=== PATIENT | male | born 1975 | race Hispanic/Latino ===

== ENCOUNTER 2018-08-13 11:22 | Emergency (ER) | payer BC | END 2018-08-13 12:32 | disposition home or self-care (01) | LOC: EDH 11:22 | DX: S62.101A Fracture of unspecified carpal bone, right wrist, initial encounter for closed fracture (principal); J45.909 Unspecified asthma, uncomplicated; E11.9 Type 2 diabetes mellitus without complications; Z72.0 Tobacco use; Y04.0XXA Assault by unarmed brawl or fight, initial encounter; Y93.89 Activity, other specified; Y92.89 Other specified places as the place of occurrence of the external cause; Y99.8 Other external cause status | CPT/HCPCS: 29125; 73130 ==

== ENCOUNTER 2021-08-06 11:07 | Emergency (ER) | payer BC, OTHER ==
[~2021-08-06] VITALS: Ht 172.7 cm; Wt 81.6 kg
[2021-08-06 12:39] LABS: BASOPHILS % (AUTO) 0.3 % (0.0-5.0); EOSINOPHILS % (AUTO) 1.3 % (0.0-8.0); HEMATOCRIT 40.6 % (42-54); LYMPHOCYTES % (AUTO) 8.2 % (21.0-51.0); MEAN CORPUSCULAR HGB CONC 35.7 g/dL (32.0-36.0); MEAN CORPUSCULAR VOLUME 83.9 fL (79-99); MONOCYTES % (AUTO) 5.7 % (3.0-13.0); NEUTROPHILS % (AUTO) 84.1 % (40.0-77.0); PLATELET COUNT (AUTO) 258 K/uL (130-400); RED BLOOD CELL COUNT(AUTO) 4.84 MIL/uL (4.50-6.20); RED CELL DISTRIBUTION WIDTH 12.6 % (11.0-15.5); WHITE BLOOD COUNT (AUTO) 15.9 K/uL (4.8-10.8)
[2021-08-06 12:40] LABS: ABG BASE EXCESS 0.6 mmol/L (-2.0-3.0); ABG HCO3 24.3 mmol/L (21.0-28.0); ABG OXYGEN SATURATION 96.3 % (95.0-99.0); ABG PCO2 36 mmHg (35-48)
[2021-08-06 12:48] LABS: CREATININE 1.1 mg/dL (0.5-1.5); POTASSIUM 4.4 mmol/L (3.5-5.1)
[2021-08-06 12:52] LABS: ALBUMIN 3.6 g/dL (3.5-5.0); BILIRUBIN,TOTAL 0.5 mg/dL (0.2-1.0); CRP QUANTITATIVE 31.8 mg/L (0.00-9.0); TOTAL PROTEIN, SERUM 7.5 g/dL (6.0-8.3)
[2021-08-06] MEDS ORDERED: DEXAMETHASONE SOD PHOSPHATE 4 MG/ML 1ML VIAL IM STA (13:15)
[2021-08-06] MEDS ORDERED: CEFTRIAXONE 1G VIAL IVP STA (13:15)
[2021-08-06] MEDS ORDERED: LIDOCAINE HCL-MPF 1% 2ML VIAL ONE (13:27)
[2021-08-06] MEDS ORDERED: AZIT500T2 PO (14:06)
[2021-08-06] MEDS ORDERED: AUD IH (14:06)
[2021-08-06] MEDS ORDERED: METH4TAB3 PO (14:06)
[2021-08-06 14:21] VITALS: BP 130/82
== END 2021-08-06 14:20 | disposition home or self-care (01) ==
LOC: EDH 11:07
DX: J06.9 Acute upper respiratory infection, unspecified (principal); Z20.822 Contact with and (suspected) exposure to COVID-19; J45.909 Unspecified asthma, uncomplicated; E11.9 Type 2 diabetes mellitus without complications; Z79.52 Long term (current) use of systemic steroids; Z79.899 Other long term (current) drug therapy
CPT/HCPCS: 36415; 36600; 71045; 80053; 82803; 85025; 86140; 87635; 87804 ×2; 93005; 96372; 96374; 99285; C9803; J0696; J1100; J3490

== ENCOUNTER 2024-12-30 22:58 | Emergency (ER) | payer SELFPAY ==
[~2024-12-30] VITALS: Ht 172.7 cm; Wt 72.6 kg
[~2024-12-30 22:58] MED LIST: AUD IH; AZIT500T2 PO; METH4TAB3 PO
[2024-12-30 23:00] VITALS: TEMP 98.5
--- NOTE | 2024-12-30 23:04 | NUR ---
UA CUP PROVIDED
--- NOTE | 2024-12-30 23:07 | ERN ---
ED Note History of Present Illness Stated Complaint: HIGH BLOOD SUGAR, BODYACHES, STIFF NNECK Chief Complaint: Multiple Complaints Time Seen by MD: 23:00 Dictation: 49-YEAR-OLD MALE HERE WITH COMPLAINTS OF HAVING BODY ACHES CHILLS HIGH BLOOD SUGARS WITH NAUSEA ONSET FOR THE LAST SEVERAL DAYS. STATES HE IS NOT COMPLIANT WITH HIS MEDICATIONS NOT SEEN HIS PRIMARY CARE DOCTOR. Allergies: Coded Allergies: No Known Drug Allergies (Unverified Allergy, Unknown, 08/06/21) Home Meds Active Scripts Albuterol Sulfate (Albuterol Sulfate) 2.5 Mg/0.5 Ml Vial.neb, 2.5 MG IH Q6HPRN, #1 BOX Prov:ROXI BATES NP 08/06/21 Azithromycin (Zithromax Tri-Roni) 500 Mg Tablet, 500 MG PO AD, #1 PACK Prov:ROXI BATES NP 08/06/21 Methylprednisolone (Medrol) 4 Mg Tab.ds.pk, 4 MG PO AD, #1 PACK Prov:ROXI BATES NP 08/06/21 Past Medical History Past Medical History: Diabetes-Type II Surgical History: Other Surgical History Other: HERNIA REPAIR Family History: Negative Social History: Negative, Lives with family RN Note Reviewed/Agreed w/PFSH: Yes Review of System Dictation CONSTITUTIONAL: NEGATIVE EXCEPT FOR HPI CHILLS HEAD/FACE: NEGATIVE EXCEPT FOR HPI EENT: NEGATIVE EXCEPT FOR HPI RESPIRATORY: NEGATIVE EXCEPT FOR HPI GASTROINTESTINAL/ABDOMINAL: NEGATIVE EXCEPT FOR HPI HIGH BLOOD SUGARS WITH NAUSEA VOMITING GENITOURINARY: NEGATIVE EXCEPT FOR HPI MUSCULOSKELETAL: NEGATIVE EXCEPT FOR HPI INTEGUMENTARY: NEGATIVE EXCEPT FOR HPI NEUROLOGICAL/PSYCH: NEGATIVE EXCEPT FOR HPI HEMATOLOGIC/LYMPHATIC: NEGATIVE EXCEPT FOR HPI ALL SYSTEMS NEGATIVE, EXCEPT NOTED ABOVE. 13 POINT REVIEW OF SYSTEMS ASSESSED AND ALL NEGATIVE EXCEPT FOR ABOVE. Initial Vital Sign VS Vital Signs Date Time Temp Pulse Resp B/P (MAP) Pulse Ox O2 Delivery O2 Flow Rate FiO2 12/30/24 23:00 98.4 129 20 111/71 99 Room Air 12/31/24 00:09 0 21 Physical Exam Dictation VITAL SIGNS REVIEWED GENERAL APPEARANCE: ALERT, ORIENTED X 3, ACUTE DISTRESS, WELL DEVELOPED, NOURISHED. HEAD AND FACE: NON-TRAUMATIC. EYES: PERRL, PINK CONJUNCTIVAS, EYELID NO TRAUMA, ANTERIOR CHAMBER WITH ARCUS SENILIS. EARS: PINNAS INTACT AND NO SIGNS OF TRAUMA OR ERYTHEMA EAR CANALS CLEAR AND NO DISCHARGE TM NO ERYTHEMA NOSE: NO DISCHARGE, NO BLEEDING. OROPHARYNX: MOUTH NORMAL, TONGUE PINK, PHARYNX CLEAR,NO ERYTHEMA, TONSILS NO EXUDATES, NO ABSCESSES NOTED, MUCOUS MEMBRANE MOIST NECK: SUPPLE, NON-TENDER, NO THYROMEGALY, NO MASSES, NO JVD, NO BRUITS BREAST:DEFERRED CHEST:NO TENDERNESS, NO CREPITUS, NO PARADOXICAL MOVEMENT, NO RETRACTIONS LUNGS:CLEAR, WELL-VENTILATED, SYMMETRIC, NO RALES, NO WHEEZING, NO RHONCHI, NO STRIDOR, GOOD BREATH SOUNDS BILATERALLY HEART: TACHYCARDIC, NO MURMUR, NO GALLOPS VASCULAR: NO PERIPHERAL EDEMA, ABDOMEN: SOFT, POSITIVE BOWEL SOUNDS, NONDISTENDED, NO GUARDING, NONTENDER, NO REBOUND, NO MASSES NO HEPATOMEGALY, NO SPLENOMEGALY, NO WATKINS'S SIGN, NO HERNIAS. RECTAL: DEFERRED GENITAL: DEFERRED NEUROLOGICAL: NORMAL SPEECH, MOTOR FUNCTION INTACT, SENSORY FUNCTION INTACT MUSCULOSKELETAL: NECK NONTENDER, FULL RANGE OF MOTION, BACK NONTENDER, FULL RANGE OF MOTION, EXTREMITIES: NONTENDER, FULL RANGE OF MOTION SKIN: COLOR PINK, DRY, NO TURGOR, NO RASH, NO LACERATIONS, NO ABRASIONS, NO CONTUSIONS. LYMPHATIC: DEFERRED Results (Laboratory/Radiology) Laboratory/Radiology Laboratory Tests Test 12/30/24 23:01 12/30/24 23:15 12/30/24 23:55 Whole Blood Glucose 426 MG/DL (70-110) *H White Blood Count 6.8 K/uL (4.8-10.8) Red Blood Count 4.50 MIL/uL (4.50-6.20) Hemoglobin 13.4 g/dL (14.0-18.0) L Hematocrit 37.0 % (42-54) L Mean Corpuscular Volume 82.2 fL (79-99) Mean Corpuscular Hemoglobin 29.8 pg (27.0-33.0) Mean Corpuscular Hemoglobin Concent 36.2 g/dL (32.0-36.0) H Red Cell Distribution Width 12.9 % (11.0-15.5) Platelet Count 109 K/uL (130-400) L Mean Platelet Volume 11.5 fL (7.5-10.5) H Immature Granulocyte % (Auto) 0.7 % (0-1) Neutrophils (%) (Auto) 92.1 % (40.0-77.0) H Lymphocytes (%) (Auto) 3.4 % (21.0-51.0) L Monocytes (%) (Auto) 3.4 % (3.0-13.0) Eosinophils (%) (Auto) 0.1 % (0.0-8.0) Basophils (%) (Auto) 0.3 % (0.0-5.0) Neutrophils # (Auto) 6.2 K/uL (1.8-7.7) Lymphocytes # (Auto) 0.2 K/uL (1.0-4.8) L Monocytes # (Auto) 0.2 K/uL (0.1-1.0) Eosinophils # (Auto) 0.01 K/uL (0.00-0.70) Basophils # (Auto) 0.02 K/uL (0.00-0.20) Absolute Immature Granulocyte (auto 0.05 K/uL (0-1) Segmented Neutrophils % 62 % (40-70) Band Neutrophils % 18 % (0-2) H Lymphocytes % (Manual) 15 % (22-44) L Monocytes % (Manual) 1 % (2-9) L Eosinophils % (Manual) 1 % (1-6) Metamyelocytes % 1 % (0-0) H Nucleated Red Blood Cells 0.0 % (0.0-0.19) Differential Comment MANUAL DIFFERENTIAL Reactive Lymphocytes 2 % (0-0) H White Cell Morphology Comment See comments Platelet Morphology Comment SLIGHTLY DECREASED Red Blood Cell Morphology ANISO 1+ Sodium Level 128 mmol/L (136-145) L Potassium Level 2.9 mmol/L (3.5-5.1) *L Chloride Level 91 mmol/L (101-111) L Carbon Dioxide Level 25 mmol/L (21-32) Blood Urea Nitrogen 18 mg/dL (7-18) Creatinine 1.5 mg/dL (0.5-1.3) H Glomerular Filtration Rate Calc 56 mL/min (>90) Random Glucose 411 mg/dL (70-105) *H Whole Blood Ketones Quantitative < 0.1 mmol/L (0.0-0.6) Total Calcium 8.7 mg/dL (8.5-10.1) Lipase 16 U/L (16-77) Urine Color YELLOW (YELLOW) Urine Appearance CLEAR (CLEAR) Urine pH 6.0 (5.0-8.0) Urine Specific Odin 1.025 (1.001-1.031) Urine Protein 100 mg/dL (NEGATIVE) H Urine Glucose (UA) >=1000 mg/dL (NEGATIVE) H Urine Ketones NEGATIVE mg/dL (NEGATIVE) Urine Occult Blood SMALL (NEGATIVE) H Urine Nitrate NEGATIVE (NEGATIVE) Urine Bilirubin NEGATIVE mg/dL (NEGATIVE) Urine Urobilinogen 2.0 mg/dL (0.2-1.0) H Urine Leukocyte Esterase NEGATIVE Serafin/uL Urine RBC 2-5 /HPF (0-1) H Urine WBC 2-5 /HPF (0-1) H Urine Bacteria RARE /HPF (None Seen) Labs Reviewed?: Yes ED Course ED Course Orders Procedure Category Date Status Time Bedside Glucose CPOE 12/30/24 Transmitted Fingerstick 23:01 Ketone Blood LAB 12/30/24 Complete Quantitative 23:04 Cbc With Differential LAB 12/30/24 Complete 23:04 Urinalysis Profile LAB 12/30/24 Complete 23:04 0.9%Nacl 1000ml (Ns PHA 12/30/24 Complete 1000ml) 23:30 Ondansetron 4mg Inj PHA 12/30/24 Complete (Zofran 4mg Inj) 23:30 Famotidine 20mg Vial PHA 12/30/24 Complete (Pepcid 20mg Vial) 23:30 Lipase LAB 12/30/24 Complete 23:04 Basic Metabolic Panel LAB 12/30/24 Complete 23:04 Insulin Regular, PHA 12/31/24 Complete Human 3ml (Humulin R 00:00 Manual Differential LAB 12/30/24 Complete 23:15 0.9%Nacl 1000ml (Ns PHA 12/31/24 Complete 1000ml) 00:00 Potassium Bicarb/Cit PHA 12/31/24 Complete Ac 25meq (K-Lyte Ta 00:30 Bedside Glucose CPOE 12/31/24 Transmitted Fingerstick 00:57 Current Medications Medications (Trade) Dose Ordered Sig/Serena Route PRN Reason Start Time Stop Time Status Last Admin Dose Admin Famotidine (Pepcid 20mg Vial) 20 mg ONCE ONCE IV 12/30/24 23:30 12/30/24 23:31 DC 12/30/24 23:56 Insulin Human Regular (humuLIN R 100 UNIT/ML 3ML) 15 unit ONCE ONCE IV 12/31/24 00:00 12/31/24 00:01 DC 12/30/24 23:57 Ondansetron HCl (zoFRAN 4MG INJ) 4 mg ONCE ONCE IVP 12/30/24 23:30 12/30/24 23:31 DC 12/30/24 23:56 Potassium Bicarbonate (K-Lyte Tablet Eff 25 Meq Tablet.eff) 50 meq ONCE ONCE PO 12/31/24 00:30 12/31/24 00:31 DC 12/31/24 00:34 Sodium Chloride 1,000 ml @ 0 mls/hr ONCE ONCE IV 12/30/24 23:30 12/30/24 23:31 DC 12/30/24 23:56 Sodium Chloride 1,000 ml @ 0 mls/hr ONCE ONCE IV 12/31/24 00:00 12/31/24 00:01 DC 12/31/24 00:34 Vital Signs Date Time Temp Pulse Resp B/P (MAP) Pulse Ox O2 Delivery O2 Flow Rate FiO2 12/31/24 01:18 112 18 149/84 98 Room Air* 0 21 12/31/24 00:09 117 18 122/76 98 Room Air* 0 21 12/30/24 23:00 98.4 129 20 111/71 99 Room Air 0120/REPEAT FINGERSTICK BLOOD SUGAR 198 PATIENT RECEIVED POTASSIUM 50 MEQ HE STATES HE HAS A HIS DIABETIC MEDICATIONS AT HOME HOWEVER HAS BEEN ACTING SILLY AND NOT TAKE HIM TO FOR THE MONTHS MONTH AND A HALF. I STRONGLY ADVISED HIM THAT HE NEEDED TO RESUME HIS DIABETIC MEDICATIONS AND THE DAMAGE SHE WAS DOING TO HIS EYES KIDNEYS HEART ARTERIES ETC. HE AGREED HE WOULD RESUME BECAUSE HE HAS CHILDREN AND WANTS TO BE HEALTHY FOR THEM HE WOULD FOLLOW UP WITH HIS PRIMARY CARE DOCTOR Medical Decision Making MDM MDM: DIFFERENTIAL DIAGNOSIS: DKA/UNCONTROLLED DIABETES/ELECTROLYTE IMBALANCE/DEHYDRATION/NAUSEA VOMITING RATIONALE: TESTS CONSIDERED AND ORDERED SECONDARY TO SHARED DECISION MAKING INCLUDE: LABS PREVIOUS OUTSIDE RECORDS REVIEWED: OLD ER VISITS. RISK OF COMPLICATION AND/OR MORBIDITY OR MORTALITY OF PATIENT MANAGEMENT: NONE MEDICATIONS-PER MEDICATION RECONCILIATION NEED FOR HOSPITALIZATION: PATIENT DOES NOT MEET CRITERIA FOR HOSPITALIZATION. NO NEED FOR EMERGENCY MAJOR/MINOR SURGERY: NO THERE ARE NO SOCIAL CONCERNS WITH THIS PATIENT. PRESCRIPTION DRUG MANAGEMENT NONE PRESCRIPTIONS WILL INCLUDE SYMPTOMATIC CARE PATIENT'S PRIOR EXTERNAL MEDICAL RECORDS FROM OTHER ER VISITS WERE REVIEWED BY ME INDICATED. PRIOR TESTING AND RESULTS FROM PREVIOUS VISITS WERE REVIEWED. PRIOR TESTS WERE TAKEN INTO ACCOUNT WITH MEDICAL DECISION MAKING AND RESOURCE UTILIZATION, INDEPENDENT HISTORIAN/HISTORIANS WERE USED TO OBTAIN COMPLETE MEDICAL HISTORY. I INDEPENDENTLY INTERPRETED THE TEST THAT WERE PERFORMED, RESULTS WERE REVIEWED BY ME AND CONSIDERED FINDINGS ON RADIOLOGY IF ORDERED. MEDICAL MANAGEMENT AND EXAMINATION INTERPRETATION DISCUSSIONS WERE HAD BY ME WITH OTHER QUALIFIED HEALTHCARE PROFESSIONALS INDICATED FOR THE PATIENT'S CARE. DX & DISP Disposition: Discharge Departure Impression: Primary Impression: Uncontrolled diabetes mellitus with hyperglycemia Additional Impressions: Hypokalemia, Nausea & vomiting, Dehydration, Noncompliance with diabetes treatment Condition: Stable Additional Instructions: FOLLOW-UP WITH PRIMARY CARE PROVIDER IN 1 TO 2 DAYS. TAKE MEDICATIONS DIRECTED HERE IN THE EMERGENCY ROOM. OKAY TO CONTINUE HOME MEDICATIONS UNLESS OTHERWISE DISCUSSED DURING YOUR VISIT IN THE EMERGENCY ROOM TODAY. RETURN TO YOUR NEAREST EMERGENCY ROOM IF SYMPTOMS WORSEN OR IF THERE IS NO IMPROVEMENT. CALL 911 IF YOU NEED IMMEDIATE ASSISTANCE. TAKE TYLENOL OR MOTRIN [id number] NEEDED AND IF NO CONTRAINDICATIONS ARE PRESENT. INCREASE ORAL HYDRATION. A WOUND CULTURE OR URINE CULTURE WAS ORDERED HERE IN THE EMERGENCY ROOM DEPARTMENT PLEASE FOLLOW-UP WITH PRIMARY CARE PROVIDER AND ADVISE THEM TO GET REPEAT PORTS FROM OUR FACILITY. IF YOU HAD ANY YODIT WRAP/SPLINTS THAT WERE APPLIED HERE, PLEASE DO NOT REMOVE THEM UNTIL YOU SEE YOUR PRIMARY CARE OR SPECIALTY. FOLLOW A DIABETIC DIET AND TAKE YOUR DIABETIC MEDICATIONS AT HOME DIRECTED BY YOUR DOCTOR. INCREASE YOUR FLUID INTAKE. SEE YOUR PRIMARY CARE DOCTOR FOR FOLLOW UP IN THE NEXT 2-3 DAYS. Referrals: TIERA MENDES (PCP) Time of Disposition: 01:21 I have reviewed the case, and I agree with, Diagnosis and Plan DIMITRIOS NESS NP Dec 30, 2024 23:07
[2024-12-30 23:28] LABS: BASOPHILS # (AUTO) 0.02 K/uL (0.00-0.20); BASOPHILS % (AUTO) 0.3 % (0.0-5.0); EOSINOPHILS # (AUTO) 0.01 K/uL (0.00-0.70); EOSINOPHILS % (AUTO) 0.1 % (0.0-8.0); IMMATURE GRANULOCYTE ABSOLUTE 0.05 K/uL (0-1); LYMPHOCYTES # (AUTO) 0.2 K/uL (1.0-4.8); LYMPHOCYTES % (AUTO) 3.4 % (21.0-51.0); MEAN CORPUSCULAR HEMOGLOBIN 29.8 pg (27.0-33.0); MEAN CORPUSCULAR HGB CONC 36.2 g/dL (32.0-36.0); MEAN CORPUSCULAR VOLUME 82.2 fL (79-99); MONOCYTES # (AUTO) 0.2 K/uL (0.1-1.0); MONOCYTES % (AUTO) 3.4 % (3.0-13.0); NEUTROPHILS # (AUTO) 6.2 K/uL (1.8-7.7); NEUTROPHILS % (AUTO) 92.1 % (40.0-77.0); PLATELET COUNT (AUTO) 109 K/uL (130-400); RED CELL DISTRIBUTION WIDTH 12.9 % (11.0-15.5); WHITE BLOOD COUNT (AUTO) 6.8 K/uL (4.8-10.8)
--- NOTE | 2024-12-30 23:49 | NUR ---
PT IN ROOM AT THIS TIME.
[2024-12-30] MEDS: 0.9%NACL 1000ML 1,000 ML IV ONE (23:56)
[2024-12-30] MEDS: FAMOTIDINE 20MG VIAL IV ONE (23:56)
[2024-12-30] MEDS: ondanSETRON 4MG INJ IVP ONE (23:56)
[2024-12-30] MEDS: INSULIN humuLIN R 100 UNIT/ML 3ML IV ONE (23:57)
[2024-12-31 00:01] LABS: CARBON DIOXIDE 25 mmol/L (21-32); CHLORIDE 91 mmol/L (101-111); CREATININE 1.5 mg/dL (0.5-1.3); GLOMERULAR FILTR. RATE CALC 56 mL/min (>90); SODIUM SERUM 128 mmol/L (136-145); UREA NITROGEN, BLOOD 18 mg/dL (7-18)
[2024-12-31 00:02] LABS: GLUCOSE,RANDOM 411 mg/dL (70-105); POTASSIUM 2.9 mmol/L (3.5-5.1)
[2024-12-31 00:11] LABS: ADD UA MICROSCOPIC YES; APPEARANCE,URINE CLEAR (CLEAR); BILIRUBIN,URINE NEGATIVE (NEGATIVE); COLOR,URINE YELLOW (YELLOW); GLUCOSE, URINE (UA) >=1000 mg/dL (NEGATIVE); KETONES,URINE NEGATIVE (NEGATIVE); LEUKOCYTE ESTERASE ,URINE NEGATIVE Leu/uL (NEGATIVE); NITRATE,URINE NEGATIVE (NEGATIVE); OCCULT BLOOD,URINE SMALL (NEGATIVE); PROTEIN,URINE 100 mg/dL (NEGATIVE)
[2024-12-31 00:12] LABS: BACTERIA,URINE RARE /HPF (None Seen); MUCUS,URINE RARE LPF (None Seen)
[2024-12-31] MEDS: PoTASSium BIcarbonate/CIT AC 25 MEQ TABLET.EFF PO ONE (00:34)
[2024-12-31] MEDS: 0.9%NACL 1000ML 1,000 ML IV ONE (00:34)
[2024-12-31 00:43] LABS: BAND NEUTROPHILS % (MANUAL) 18 % (0-2); EOSINOPHILS % (MANUAL) 1 % (1-6); LYMPHOCYTES % (MANUAL) 15 % (22-44); MAN.DIFF COMMENT-IMPRESSION MANUAL DIFFERENTIAL; METAMYELOCYTES % 1 % (0-0); MONOCYTES % (MANUAL) 1 % (2-9); REACTIVE LYMPHOCYTES 2 % (0-0); SEGMENTED NEUTROPHILS % 62 % (40-70); TOTAL CELLS COUNTED 100
[2024-12-31 00:48] LABS: PLATELET MORPHOLOGY COMMENT SLIGHTLY DECREASED
[2024-12-31 01:18] VITALS: BP 149/84; PULSE 112; RESP 18; O2SAT 98
[2025-01-01] MEDS ORDERED: ESCI5TAB16 PO (09:08)
== END 2024-12-31 01:34 | disposition home or self-care (01) ==
LOC: EDH 22:58
DX: E11.65 Type 2 diabetes mellitus with hyperglycemia (principal); E87.6 Hypokalemia; E86.0 Dehydration; R11.2 Nausea with vomiting, unspecified; Z98.890 Other specified postprocedural states
CPT/HCPCS: 99284; 96374; 96375; 96361; 80048; 83690; 85025; 82948 ×2; 82010; 81001; 36415; J1815; J3490; J7030 ×2; J2405